=== PATIENT | female | born 1980 | race Caucasian/White ===

== ENCOUNTER → 2016-09-08 | Outpatient (CLI) | payer BC ==
--- NOTE | 2016-09-09 08:05 | REP ---
Clinical: Anatomical evaluation. Comparison: None . Findings: Examination demonstrates a single live intrauterine in breech presentation. motion is identified by technologist. Placenta is noted anteriorly and grade zero with evidence for placenta previa. Amniotic fluid volume is normal. Cervix measures 5.6 cm in length and appears closed. No evidence for nuchal cord. Gestational age by LMP 19 weeks 4 days with RADHA 01/29/2017 . Gestational age by current measurements 20 weeks 4 days with [facility] 01/22/2017 . FHR equals 144 beats per minute. BPD 4.6 cm 19 weeks 6 days HC 18.6 cm 20 weeks 6 days AC 16.1 cm 21 weeks 2 days FL 3.4 cm 20 weeks 5 days HL 3.2 cm 20 weeks 4 days HC/AC ratio 1.15 Estimated weight 387 grams ( > 97% ). Anatomical assessment demonstrates normal structures including cranium, choroid plexus, cavum, cerebellum/posterior fossa, stomach, cord insertion, bladder, and extremities. Limited evaluation of the facial features, lungs, four-chamber heart/ventricular outflow tracts, diaphragm, three-vessel cord, kidneys and spine. Impression: Single live intrauterine in breech presentation. Estimated weight is greater than 97 percentile. Complete placenta previa. Anatomical limitations as described above warrant reevaluation. Signed by Chip Argueta MD 09/09/2016 07:57 A
== END ==
LOC: M RAD 17:14
PROVIDERS: ATTEND Advanced Practice Midwife
DX: Z36 Encounter for antenatal screening of mother (principal); O32.1XX0 Maternal care for breech presentation, not applicable or unspecified; Z3A.20 20 weeks gestation of pregnancy

== ENCOUNTER → 2016-10-28 | Outpatient (CLI) | payer BC ==
[~2016-10-28] MED LIST: MACR100C43 PO; MOTR200T44 PO; PRENTAB9 PO; TYLE325T5 PO
--- NOTE | 2016-10-29 04:51 | REP ---
Clinical: Anatomical evaluation. Comparison: 09/08/2016 . Findings: Examination demonstrates a single live intrauterine in breech presentation. motion is identified by technologist. Placenta is noted anteriorly and grade one without evidence for placenta previa or abruption. Amniotic fluid volume is normal. Cervix measures 5.6 cm in length and appears closed. No evidence for nuchal cord. Gestational age by LMP 26 weeks 5 days with [facility] 01/29/2017 . Gestational age by current measurements 27 weeks 1 day with [facility] 01/26/2017 . FHR equals 140 beats per minute. Estimated weight 1021 grams ( 52nd percentile). Amniotic fluid index 23.6 cm (9.6 - 22.5). Anatomical assessment demonstrates normal structures including cranium, cavum, cerebellum/posterior fossa, facial features, lungs, four-chamber heart/ventricular outflow tracts, diaphragm, stomach, cord insertion/three-vessel cord, kidneys, spine, and lower extremities. Impression: 1. Single live intrauterine in breech presentation demonstrating appropriate interval growth. 2. Amniotic fluid index is just beyond normal range. 3. In conjunction with prior examination anatomical assessment is complete and normal. Signed by Chip Argueta MD 10/29/2016 04:42 A
== END ==
LOC: M RAD 16:48
PROVIDERS: ATTEND Obstetrics & Gynecology
DX: Z36 Encounter for antenatal screening of mother (principal); Z3A.27 27 weeks gestation of pregnancy

== ENCOUNTER 2017-01-07 12:34 | Outpatient (CLI) | payer BC ==
[~2017-01-07] VITALS: Ht 170.2 cm; Wt 116.0 kg
[2017-01-07] MEDS ORDERED: MACR100C43 PO (12:54)
[2017-01-07] MEDS ORDERED: PRENTAB9 PO (12:54)
[2017-01-07 13:08] VITALS: BP 109/65
== END 2017-01-07 15:49 | disposition home or self-care (01) ==
LOC: M LDO 12:34
PROVIDERS: ATTEND Obstetrics & Gynecology
DX: O26.893 Other specified pregnancy related conditions, third trimester (principal); Z3A.36 36 weeks gestation of pregnancy; Z87.891 Personal history of nicotine dependence; O23.43 Unspecified infection of urinary tract in pregnancy, third trimester

== ENCOUNTER → 2017-01-12 | Outpatient (REF) | payer BC | LOC: M LAB REF 17:03 | PROVIDERS: ATTEND Advanced Practice Midwife | DX: O99.213 Obesity complicating pregnancy, third trimester (principal); Z3A.00 Weeks of gestation of pregnancy not specified ==

== ENCOUNTER → 2017-01-14 | Outpatient (CLI) | payer BC ==
--- NOTE | 2017-01-15 02:04 | REP ---
Clinical: Gestational diabetes for well being. Comparison: 10/28/2016 . Findings: Examination demonstrates a single live intrauterine in cephalic presentation. motion is identified by technologist. Placenta is noted anteriorly and grade II without evidence for placenta previa or abruption. Amniotic fluid volume is normal. Cervix measures 3.0 cm in length and appears closed. No evidence for nuchal cord. Gestational age by LMP 37 weeks 6 days with [facility] 01/29/2017 . Gestational age by current measurements 38 weeks 2 days with [facility] 01/26/2017 . FHR equals 146 beats per minute. Estimated weight 3667 grams ( 76 percentile). Biophysical profile score = 8/8. Amniotic fluid index = 21.4 cm (7.3 - 24.0) Umbilical cord SD ratio 1.99 (1.60 - 2.60). Impression: 1. Single live advanced gestation in cephalic presentation demonstrating appropriate interval growth. No gross abnormalities are identified. 2. Biophysical profile score equals 8/8. 3. Amniotic fluid index normal. Signed by Chip Argueta MD 01/15/2017 01:56 A
== END ==
LOC: M RAD 11:19
PROVIDERS: ATTEND Advanced Practice Midwife
DX: O26.843 Uterine size-date discrepancy, third trimester (principal); O24.410 Gestational diabetes mellitus in pregnancy, diet controlled; Z3A.38 38 weeks gestation of pregnancy

== ENCOUNTER 2017-01-22 02:18 | Inpatient (IN) | payer BC ==
[~2017-01-22] VITALS: Ht 170.2 cm; Wt 117.0 kg
[2017-01-22] VITALS (20 sets, daily range): BP systolic 92–132; BP diastolic 51–76
[~2017-01-22 02:18] MED LIST changes: -MOTR200T44 PO; -TYLE325T5 PO
[2017-01-22] MEDS ORDERED: LR 1,000 ML IV SCH (03:28)
[2017-01-22] MEDS ORDERED: PENICILLIN G POTASSIUM IV 5 MU in D5W MINI-BAG PLUS 100 ML IV STA (03:28)
[2017-01-22] MEDS ORDERED: LACTATED RINGER'S 1000 ML IV STA (03:28)
[2017-01-22] MEDS ORDERED: OXYTOCIN DRIP 30 UNITS in APPROPRIATE DILUENT 1 EA IV SCH (03:30)
[2017-01-22 03:53] LABS: MEAN CORPUSCULAR HEMOGLOBIN 28.9 pg (27.0-33.0); MEAN CORPUSCULAR HGB CONC 33.3 g/dl (32.0-36.5); MEAN CORPUSCULAR VOLUME 86.6 fl (80.0-96.0); RED CELL DISTRIBUTION WIDTH 13.7 % (11.5-14.5); WHITE BLOOD COUNT 15.5 10^3/uL (4.0-10.0)
[2017-01-22] MEDS ORDERED: FENTANYL 2MCG/ML ROPIVACAINE 0.2% IN 0.9% NACL 200ML IVBAG As Ordered ONE (04:47)
[2017-01-22] MEDS ORDERED: LACTATED RINGER'S 1000 ML IV PRN (06:05)
[2017-01-22] MEDS ORDERED: NALOXONE INJ 0.4 MG/1 ML VIAL (J2310) IV PRN (06:05)
[2017-01-22] MEDS ORDERED: diphenhydrAMINE INJ 50MG/ML VIAL (J1200) IV PRN (06:05)
[2017-01-22] MEDS ORDERED: ONDANSETRON 4MG/2ML VIAL (J2405) IV PRN ×2 (06:05→17:45)
[2017-01-22] MEDS ORDERED: EPIDURAL COMMENT XX SCH (06:05)
[2017-01-22] MEDS ORDERED: FENTANYL/ROPIVACAINE/NACL BAG 200 ML EPIDURAL SCH (06:05)
[2017-01-22] MEDS ORDERED: EPIDURAL/PCA KEYS XX PRN (06:05)
[2017-01-22] MEDS ORDERED: REFRIGERATOR IV KEYS XX PRN (06:05)
[2017-01-22] MEDS: ePHEDrine SULFATE 25 MG/5 ML(5MG/ML) SYRINGE IV PRN ×3 (06:41→06:56)
[2017-01-22] MEDS: PENICILLIN G POTASSIUM IV 2.5 MU in D5W 100 ML IV SCH ×3 (08:10→16:17)
[2017-01-22] MEDS ORDERED: RHOGAM 300 MCG (1500 IU) INJ (J2790) IM SCH (17:45)
[2017-01-22] MEDS ORDERED: miSOPROStol 200 MCG TAB (S0191) PR ONE (17:45)
[2017-01-22] MEDS ORDERED: METHYLERGONOVINE MALEATE 0.2 MG TAB PO PRN (17:45)
[2017-01-22] MEDS ORDERED: OXYTOCIN DRIP 30 UNITS in APPROPRIATE DILUENT 1 EA IV ONE (17:45)
[2017-01-22] MEDS ORDERED: MEASLES,MUMPS,RUBELLA VACCINE INJ (MMR-II) (90707) SC SCH (17:45)
[2017-01-22] MEDS ORDERED: DOCUSATE SODIUM 100 MG CAP PO PRN (17:45)
[2017-01-22] MEDS ORDERED: ACETAMINOPHEN 500 MG TAB PO PRN (17:45)
[2017-01-22] MEDS ORDERED: DIBUCAINE 1% OINTMENT 30GM TOP PRN (17:45)
--- NOTE | 2017-01-22 17:50 | DN ---
DATE OF DELIVERY: 01/22/2017 PREDELIVERY DIAGNOSIS: Term in labor. POSTDELIVERY DIAGNOSIS: Delivered. PROCEDURE: Spontaneous vaginal delivery. HISTOLOGICAL ILLUSTRATOR: Dr. Addy Vargas ANESTHESIA: Epidural. ESTIMATED BLOOD LOSS: 300 mL. FINDINGS: 3740 grams male , 8 pounds 4 ounces. scores 9 and 9. DELIVERY SUMMARY: After a short second stage, the patient had spontaneous delivery of an 8 pound 4 ounce male infant, scores 9 and 9, tight nuchal cord times one reduced manually and shoulders delivered spontaneously with ease. The infant cried spontaneously and was handed to the mother. Cord was doubly clamped and cut. Placenta delivered spontaneously and appeared to be intact. The patient received IV Pitocin immediately after delivery of the placenta. The patient received 800 mcg of Cytotec per rectum as well to prevent bleeding. There was an extremely small first degree peroneal laceration which did not require repair. No sponges were utilized during the procedure.
[2017-01-22] MEDS: IBUPROFEN 800 MG TAB PO PRN (20:09)
[2017-01-23 05:46] VITALS: BP 157/79
[2017-01-23 05:50] VITALS: BP 146/80
[2017-01-23] MEDS: IBUPROFEN 800 MG TAB PO PRN (08:26)
[2017-01-23] MEDS: PRENATAL VITAMINS CHEWABLE TABLET PO SCH (08:26)
[2017-01-23 08:52] VITALS: BP 120/64
[2017-01-23 18:00] VITALS: BP 129/75
[2017-01-24] MEDS: IBUPROFEN 800 MG TAB PO PRN (02:56)
[2017-01-24 06:33] VITALS: BP 125/74
[2017-01-24] MEDS: PRENATAL VITAMINS CHEWABLE TABLET PO SCH (08:23)
[2017-01-24] MEDS ORDERED: TYLE325T5 PO (09:05)
[2017-01-24] MEDS ORDERED: MOTR200T44 PO (09:05)
== END 2017-01-24 11:50 | disposition home or self-care (01) | DRG 560 ==
LOC: M LDO 02:18 → M LDI 03:48 → M OBS 19:56
PROVIDERS: ADMIT Obstetrics & Gynecology; ATTEND Obstetrics & Gynecology
PROC: 10E0XZZ Delivery of Products of Conception, External Approach (ICD-10-PCS; principal; 2017-01-22)
PROC: 0HQ9XZZ Repair Perineum Skin, External Approach (ICD-10-PCS; 2017-01-22)
DX: O24.429 Gestational diabetes mellitus in childbirth, unspecified control (principal); E66.9 Obesity, unspecified; Z37.0 Single live birth; Z3A.40 40 weeks gestation of pregnancy; Z90.49 Acquired absence of other specified parts of digestive tract; Z79.899 Other long term (current) drug therapy; O99.824 Streptococcus B carrier state complicating childbirth; O69.1XX0 Labor and delivery complicated by cord around neck, with compression, not applicable or unspecified; O70.0 First degree perineal laceration during delivery; O99.214 Obesity complicating childbirth